=== PATIENT | male | born 1940 | race Caucasian/White ===

== ENCOUNTER 2023-08-23 16:59 | Emergency (ER) | payer OTHER ==
[~2023-08-23] VITALS: Ht 182.9 cm; Wt 74.8 kg
[2023-08-23 17:34] LABS: BASOPHILS ABSOLUTE AUTO 0.14 K/mm3 (0.00-0.23); BASOPHILS PERCENT AUTO 2 % (0-2); EOSINOPHILS ABSOLUTE AUTO 0.85 K/mm3 (0.00-0.68); EOSINOPHILS PERCENT AUTO 10 % (0-6); Hematocrit 35.8 % (37.0-53.0); Hemoglobin 12.3 g/dL (13.5-17.5); IMMATURE GRAN ABSOLUTE AUTO 0.04 K/mm3 (0.00-0.10); IMMATURE GRAN PERCENT AUTO 1 % (0-1); LYMPHOCYTES ABSOLUTE AUTO 1.73 K/mm3 (0.84-5.20); LYMPHOCYTES PERCENT AUTO 21 % (21-46); MONOCYTES PERCENT AUTO 6 % (4-13); Mean Corpuscular HGB 31.3 pg (26.0-34.0); Mean Corpuscular HGB Conc 34.4 g/dL (31.5-36.5); Mean Corpuscular Volume 91 fL (80-100); Mean Platelet Volume 10.2 fL (9.1-12.4); NEUTROPHILS PERCENT AUTO 60 % (41-73); Platelet Count 211 K/mm3 (150-400); RDW Coefficient Variation 12.5 % (11.7-14.2); RDW Standard Deviation 41.7 fL (35.1-46.3); Red Blood Cell Count 3.93 M/mm3 (4.30-5.90); White Blood Cell Count 8.16 K/mm3 (4.00-11.30)
[2023-08-23 18:05] LABS: Albumin, Blood 3.9 g/dL (3.4-5.0); Albumin/Globulin Ratio 1.1 (0.8-1.8); Bilirubin, Total 0.6 mg/dL (0.1-1.0); Bun/Creatinine Ratio 23.1 (12.0-20.0); Calcium, Blood 9.2 mg/dL (8.5-10.1); Creatinine, Blood 1.56 mg/dL (0.60-1.20); Globulin, Blood 3.7 g/dL (2.2-4.0); Potassium, Blood 4.4 mmol/L (3.5-5.5); Total Protein, Blood 7.6 g/dL (6.4-8.2)
[2023-08-23 19:26] LABS: Source, Urine Clean Catch
[2023-08-23 19:30] LABS: Appearance, Urine Clear (Clear); Bilirubin, Urine Neg (Neg); Blood, Urine Neg (Neg); Glucose Qualitative, Urine 4+ (Neg); Ketones, Urine Neg (Neg); Leukocyte Esterase, Urine Neg (Neg); Nitrite, Urine Neg (Neg); Protein, Urine Neg (Neg); Urobilinogen, Urine NORM (Normal); pH, Urine 6.5 (5.0-8.0)
[2023-08-23 19:35] LABS: Color, Urine Pale Yellow (P-Yellow)
[2023-08-23 20:11] LABS: Glucose, Blood 724 mg/dL (70-99)
[2023-08-23 22:00] VITALS: BP 109/41
== END 2023-08-23 22:17 | disposition home or self-care (01) ==
LOC: ER 16:59
PROVIDERS: Student in an Organized Health Care Education/Training Program
DX: E11.65 Type 2 diabetes mellitus with hyperglycemia (principal); E86.0 Dehydration; I10 Essential (primary) hypertension; Z79.84 Long term (current) use of oral hypoglycemic drugs
CPT/HCPCS: 80053; 81003; 82947; 85025; 96360; 99283-25; A9270; J1815; J7030

== ENCOUNTER 2025-04-27 16:15 | Emergency (ER) | payer OTHER ==
[~2025-04-27] VITALS: Ht 182.9 cm; Wt 86.2 kg
[2025-04-27] MEDS ORDERED: HYDROmorphone HCl/Pf 1MG SYR IV ONE (16:50)
[2025-04-27] MEDS ORDERED: Diazepam 5 MG / ML 2ML SYR IV ONE (16:50)
[2025-04-27] MEDS ORDERED: Ketorolac Tromethamine 30mg Vial IV ONE (16:50)
[2025-04-27] MEDS ORDERED: Dexamethasone Sod Phos 10 MG/ML 1ML VIAL IV ONE (16:50)
[2025-04-27 19:03] VITALS: BP 106/59
[2025-04-27] MEDS ORDERED: METPRE4DP PO (19:19)
[2025-04-27] MEDS ORDERED: VALIUM513 PO (19:19)
== END 2025-04-27 19:25 | disposition home or self-care (01) ==
LOC: ER 16:15
DX: M54.2 Cervicalgia (principal); G89.29 Other chronic pain; E11.9 Type 2 diabetes mellitus without complications; I10 Essential (primary) hypertension; Z88.5 Allergy status to narcotic agent
CPT/HCPCS: 96374; 96375; 99283-25; J1100; J1171; J1885; J3360